=== PATIENT | male | born 1950 | race Caucasian/White ===

== ENCOUNTER 2017-09-20 01:34 | Inpatient (IN) | payer OTHER, MEDICAID ==
[~2017-09-20] VITALS: Ht 172.7 cm; Wt 76.7 kg
[2017-09-20] VITALS (18 sets, daily range): BP systolic 92–127; BP diastolic 45–80
[2017-09-20] MEDS ORDERED: ATORVASTATIN CA40 MG PO (01:55)
[2017-09-20] MEDS ORDERED: TYLENOL325 MG PO (01:55)
[2017-09-20] MEDS ORDERED: ASPIRIN325 PO (01:55)
[2017-09-20] MEDS ORDERED: PAXIL10 MG PO (01:56)
[2017-09-20] MEDS ORDERED: MIRALAX17 GM PO (01:56)
[2017-09-20] MEDS ORDERED: NORCO 5-325 TA1 EACH PO (01:57)
[2017-09-20] MEDS ORDERED: EFFEXOR XR37.5 MG PO (01:57)
[2017-09-20 01:59] LABS: HEMATOCRIT 39.1 % (42.0-52.0); HEMOGLOBIN 12.9 gm/dL (14.0-18.0); MCH 29.5 pg (26.0-34.0); MCHC 32.9 g/dL (28.0-37.0); MCV 89.8 fL (80.0-100.0); MPV 7.7 fl. (7.2-11.1); NUCLEATED RBCS 0 /100WBC; PLATELET COUNT* 182 thou/uL (150-400); RBC 4.35 mil/uL (4.50-6.00); RDW-CV 13.2 % (10.5-14.5); WBC 11.8 thou/uL (4.0-11.0)
[2017-09-20] MEDS ORDERED: APAP650 PO (02:00)
[2017-09-20 02:08] LABS: CALCIUM 8.2 mg/dL (8.5-10.1); CREATININE 1.1 mg/dL (0.6-1.3); POTASSIUM 3.2 mmol/L (3.5-5.1)
[2017-09-20 02:10] LABS: APTT 28.9 Seconds (25.0-31.3); INR 1.1; PROTIME 10.4 Seconds (9.20-11.50)
[2017-09-20 02:13] LABS: ALBUMIN 2.9 g/dL (3.4-5.0); TOTAL BILIRUBIN 0.7 mg/dL (<0.1-1.0); TOTAL PROTEIN 7.5 g/dL (6.4-8.2)
[2017-09-20 02:28] LABS: URINE BILIRUBIN NEGATIVE (Negative); URINE BLOOD 3+ (Negative); URINE CLARITY CLEAR; URINE COLOR YELLOW; URINE GLUCOSE-RANDOM NEGATIVE (Negative); URINE KETONES 2+ (Negative); URINE LEUKOCYTES-REFLEX 1+ (Negative); URINE NITRITE-REFLEX NEGATIVE (Negative); URINE PROTEIN 1+ (Negative); URINE UROBILINOGEN 0.2 E.U./dl (0.2-1.0)
[2017-09-20 02:39] LABS: SQUAMOUS 0-3 Few /LPF (0-3); URINE WBC-REFLEX >25 Many /HPF (0-5); WBC CLUMPS Moderate (None Seen)
[2017-09-20 02:40] LABS: BACTERIA-REFLEX >30 Many /HPF (None Seen); CASTS None Seen /LPF (None Seen); CRYSTALS None Seen /LPF (None Seen); MUCUS 4-6 Moderate strn/LPF (None Seen); URINE RBC >20 Many /HPF (0-2)
[2017-09-20 02:49] LABS: ABSOLUTE LYMPHOCYTES 0.6 thou/uL (0.8-5.3); ABSOLUTE MONOCYTES 0.9 thou/uL (0.0-1.2); ABSOLUTE NEUTROPHILS 10.3 thou/uL (1.6-8.1); PLATELET ESTIMATE ADEQUATE; TOXIC GRANULATION 2+
[2017-09-20 02:50] LABS: ANISOCYTOSIS Occasional
[2017-09-20 02:57] LABS: INFLUENZA A ANTIGEN None Detected (None Detect)
--- NOTE | 2017-09-20 03:21 | NUR ---
[facility] CONTACTED PER DR MINAYA REQUEST TO INQUIRE HOW [place] IS GIVING PO MEDS. PER [place] STAFF PATIENTS MEDICATIONS ARE CRUSHED AND OR MIXED WITH APPLESAUCE OR PUDDING. PATIENT WAS GIVEN TAMIFLU MIXED IN APPLESAUCE.
--- NOTE | 2017-09-20 05:03 | NUR ---
RECEIVED ERPORT FROM ED NURSE. ALL QUESTIONS ANSWERED. MEDICCATIONS, DIAGNOSIS AND PLAN OF CARE DISCUSSED. PATIENT TRANSFERRED TO UNIT AT 0430 VIA ED STRETCHER. PATIENT TRANSFERRED TO ICU BED. NURSING ADMISSION ASSESSMENT COMPLETED. MONTANEZ CATH WITH TEMP PROBE PLACED FOR ACCURATE I&O AND TEMPERATURE MEASUREMENTS. 150CC OUT OF CATH AT INSERTION TIME.
--- NOTE | 2017-09-20 06:52 | NUR ---
PATIENT RESTING IN BED AT THIS TIME. OVERALL ALERT AND ORIENTED TIMES FOUR. RIGHT SIDED WEAKNESS NOTED FROM PREVIOUS STROKE. TEMP NOTED AT 101.7 CORE. MONTANEZ CATH WITH TEMP PROBE INSERTED FOR ACCURATE I&O AND TEMPERATURES. SCD'S IN PLACE. IV PATENT TO FLUID INFUSION. FAN ON PATIENTT AND ICE BAG PLACED UNDER BASE OF NECK. NO COMPLAINTS OF PAIN OR DISCOMFORT. RN ASSESMENT COMPLETED DOCUMENTED
--- NOTE | 2017-09-20 09:03 | NUR ---
PATIENT CARE ASSUMED AT 0700. PATIENT RESTING UPON ENTERING ROOM. REFER TO ASSESSMENT AND VITALS. PATIENT DENIES PAIN AT THIS TIME, SEEMS CONFUSED TO WHY HE IS HERE. AOX4 BUT VERY FORGETFUL. APHASIC AND RIGHT SIDED WEAKNESS OF BOTH EXTREMITIES PRESENT AT BASELINE. IS FROM [facility]. TYELNOL GIVEN FOR 102 FEVER. ALL MORNING MEDICATIONS GIVEN CRUSHED IN APPLESAUCE. PATIENT SWALLOWS MULTIPLE TIMES BEFORE CLEARNING THROAT. ST EVALUATION ENTERED FOR PNEUMONIA AND HISTORY.
--- NOTE | 2017-09-20 13:44 | EKG ---
[place] [address] ELECTROCARDIOGRAM REPORT Name: JERE THIBODEAUX Room: [address] ADM IN M.R.#: [id number] Admission: 09/20/17 Attend Phys: Gee Contreras, Discharge: Date of : 50 Report #: [id number] THIS REPORT FOR: //name// [facility] ED Test Date: 2017-09-20 Test Time: 02:27:19 Pat Name: JERE THIBODEAUX Department: Room: [facility] Gender: M Business Analyst Project Manager: : 1950 Requested By: Pavan Ruby Order Number: [id number] MD: Rogers Reyes Measurements Intervals [place] Rate: 99 P: 90 AK: 133 QRS: 45 QRSD: 90 T: 35 QT: 356 QTc: 457 Interpretive Statements Sinus rhythm No previous ECG available for comparison Electronically Signed On 09-20-2017 13:43:50 [employer] CREW MEMBER by Rogers Reyes [email or web address] <ELECTRONICALLY SIGNED> By: Rogers Reyes MD, [facility] 09/20/17 1343 0227 6 Rogers Reyes MD, FACC /EPI
--- NOTE | 2017-09-20 17:32 | NUR ---
PATIENT PROGRESSING TOWARDS GOALS. NOW TRACING NSR ON APPLIQUER ZIGZAG. CURRENT CORE TEMP 99.0 WITH TWO DOSES OF PRN TYLENOL THIS SHIFT. WHILE AWAKE, PATIENT SATS 94% ON ROOM AIR, BUT WHILE SLEEPING HE DESATURATES. SNORES, PROBABLE SLEEP APNEA. SLEPT MOST OF SHIFT. AWOKEN FOR MEALS, BUT HAS NOT EATEN MUCH. REFER TO CHARTING. DAUGHTER AND SON PRESENT TODAY FOR BREIF TIME AND UPDATED ON PLAN OF CARE.
--- NOTE | 2017-09-20 23:39 | NUR ---
ASSUMED CARE OF PATIENT AT 1900 THE PATIENT REMAINS SR ON THE MONITOR O2 SAT MAINTAINED ON 2L NC CONTINUES BEDREST DURING START OF SHIFT ASSESSMENT INCONT SOFT FORMED BM INCONT EPISODE SAFETY INTERVENTIONS CONTINUE BED LOWERED WHEELS LOCKED CALL LIGHT IN REACH SIDE RAILS UP PATIENT DENIES ANY QUESTIONS OR NEEDS WILL CONTINUE TO MONITOR
[2017-09-21] VITALS (8 sets, daily range): BP systolic 100–127; BP diastolic 47–67
[2017-09-21 04:32] LABS: HEMATOCRIT 32.6 % (42.0-52.0); MCHC 33.7 g/dL (28.0-37.0); NUCLEATED RBCS 0 /100WBC; PLATELET COUNT* 160 thou/uL (150-400)
[2017-09-21 04:35] LABS: ABSOLUTE LYMPHOCYTES 0.6 thou/uL (0.8-5.3); ABSOLUTE MONOCYTES 0.3 thou/uL (0.0-1.2); ABSOLUTE NEUTROPHILS 16.2 thou/uL (1.6-8.1); LYMPHOCYTES 3.6 %; MCH 29.9 pg (26.0-34.0); MCV 88.8 fL (80.0-100.0); MPV 8.2 fl. (7.2-11.1); POLYS 94.4 %; RBC 3.68 mil/uL (4.50-6.00); RDW-CV 13.4 % (10.5-14.5); WBC 17.2 thou/uL (4.0-11.0)
[2017-09-21 05:09] LABS: CREATININE 0.9 mg/dL (0.6-1.3); MAGNESIUM 2.3 mg/dL (1.8-2.4); POTASSIUM 3.2 mmol/L (3.5-5.1)
--- NOTE | 2017-09-21 06:49 | NUR ---
THIS AM PATIENT MORE ALERT AND CONVERSATIONAL REQUESTING POP AND COMMUNICATING NEEDS WELL QUESTIONS WHEN HE WILL BE GETTING OUT OF HERE, REQUIRES ASSIST WITH DRINKING WHILE PO H20 INTAKE NOTED COUGH ET FLUID DOWN LEFT SIDE OF MOUTH IN AM NOTED KELLY IN MONTANEZ LINE SECUREMENT DEVICE REMAINS IN PLACE PATIENT TOLERATES REPOSITIONING WELL LARGE BM X 2 THIS SHIFT SAFETY INTERVENTIONS CONTINUE REPORT GIVEN TO ONCOMING RN
--- NOTE | 2017-09-21 10:30 | NUR ---
PT ADMITTED 09/20 WITH PNEUMONIA. S.T. EVAL PENDING FOR POSSIBLE ASPIRATION. PT IS FROM [facility]. NO FAMILY HERE AT THIS TIME. UNABLE TO REACH ADMISSIONS AT [facility]. WILL CONTINUE TO FOLLOW.
--- NOTE | 2017-09-21 11:49 | CON ---
[address] [address] CONSULTATION Name: JERE THIBODEAUX Room: [address] IN M.R.#: [id number] Admission: 09/20/17 Attend Phys: Gee Contreras, Discharge: Date of : 50 Report #: [id number] THIS REPORT FOR: //name// CC: Sander Contreras DATE OF SERVICE: 09/21/2017 ATTENDING PHYSICIAN: Gee Contreras MD REASON FOR EVALUATION: Influenza complicated by secondary bacterial pneumonitis. HISTORY OF PRESENT ILLNESS: Chart reviewed, the patient examined. A 67-year-old with history of previous stroke complicated by some hemiplegia, also I suspect degree of encephalopathy, he was evaluated presenting to the emergency room with progressive dyspnea, was found to be hypoxemic, temperature elevated to 103, did have positive influenza antigen B study. He was hypotensive and was transitioned to the intensive care unit. Cultures have been collected, which are unrevealing thus far. He has been started on combination therapy with azithromycin, Zosyn, and Tamiflu. He does complain of generalized abdominal related discomfort, supported on supplemental oxygen per nasal cannula. Hemodynamics have improved. ALLERGIES: No known. CURRENT MEDICATIONS: Include enoxaparin, azithromycin, methylprednisolone, paroxetine, venlafaxine, atorvastatin, aspirin, pantoprazole, Zosyn, and Tamiflu. PAST MEDICAL HISTORY: History of strokes, hemiplegia, hemiparesis, dysphagia, history of UTIs, and depression. SOCIAL HISTORY: Nonsmoker. No ethanol. FAMILY HISTORY: Noncontributory. REVIEW OF SYSTEMS: As above. PHYSICAL EXAMINATION: GENERAL: He appears somewhat chronically ill, undernourished, he is pleasant, clearly has some deficits. VITAL SIGNS: Temperature 99.1 and the T-max of 102, pulse 73, respirations 26, blood pressure 116/56. SKIN: Warm, dry, no rashes. HEENT: Otherwise, unremarkable. Nasal cannula [place] [address] CONSULTATION Name: JERE THIBODEAUX Room: [address] IN [facility].#: [id number] Admission: 09/20/17 Attend Phys: Gee Contreras, Discharge: Date of : 50 Report #: [id number] NECK: Supple. LUNGS: Scattered coarse breath sounds. HEART: Regular. I do not appreciate any murmur. ABDOMEN: Soft. There are no peritoneal signs. GENITOURINARY: Deferred. RECTAL: Deferred. LABORATORY DATA: Blood cultures sterile thus far. Urine culture unremarkable. Sodium 142, potassium 3.2, chloride 114, bicarbonate 24, BUN and creatinine 16 and 0.9, and glucose of 221. CBC: White count of 17.2, H and H 11.0 and 32.6, and platelets of 160. Chest x-ray, infiltrate in right medial lower lobe. Influenza antigen was positive. Lactic acid of 1.4. Liver functions unremarkable. Albumin of 2.9, total protein 7.5, estimated GFR of 67. ASSESSMENT: Influenza complicated by secondary bacterial pneumonitis. We will continue combination therapy including both antiviral and antibacterial. At this point, he seems to have responded fairly well in terms of hemodynamic instability, his oxygen status has stabilized, temperature has dropped, certainly we will monitor expectantly. <ELECTRONICALLY SIGNED> By: Tao Ruiz MD 09/21/17 1149 0948 [id number] Ruiz MD /nt
--- NOTE | 2017-09-21 15:07 | NUR ---
PATIENT PROGRESSING TOWARDS GOALS. VITALS WNL. TRANSFERING TO MED SURG UNIT. REPORT GIVEN TO JOHN MCCLELLAN.
--- NOTE | 2017-09-21 16:01 | NUR ---
PATIENT TRANSFERED TO BY BED WITH JOHN MCCLELLAN AND LOPEZ JUNG AT 1555.
--- NOTE | 2017-09-21 16:15 | NUR ---
ASSUMED CARE OF PATIENT. AGREE WITH PREVIOUS NURSES CHARTING.
--- NOTE | 2017-09-21 18:05 | NUR ---
ALERT AND ORIENTED X2. PATIENT HAS NOT TRANSFERRED SINCE ARRIVING TO UNIT. DENIES PAIN AND NAUSEA. IV IS PATENT AND INFUSING. TOLERATING DIET. MONTANEZ IN PLACE AND DRAINING. INCONTINENT OF BOWEL. VSS ON ROOM AIR. HOURLY ROUNDS HAVE BEEN MAINTAINED THROUGHOUT SHIFT. CALL LIGHT IS WITHIN REACH. NURSING WILL CONTINUE TO MONITOR.
[2017-09-22 03:35] VITALS: BP 138/69
--- NOTE | 2017-09-22 05:31 | NUR ---
PT SLEPT MOST OF SHIFT. ASSESSMENT DOCUMENTED. MEDS GIVEN PER E-MAR. IV PATENT, FLUIDS INFUSING. PT HAS NO REPORTS OF PAIN. MONTANEZ DRAINING. PT REPOSITIONED THROUGH NIGHT. PT A&O 1-2 THIS SHIFT. NO CONCERNS AT THIS TIME.
[2017-09-22 07:45] VITALS: BP 162/81
[2017-09-22 11:35] LABS: HEMATOCRIT 32.2 % (42.0-52.0); HEMOGLOBIN 10.8 gm/dL (14.0-18.0); MCHC 33.5 g/dL (28.0-37.0); MCV 89.4 fL (80.0-100.0); MPV 8.5 fl. (7.2-11.1); NUCLEATED RBCS 0 /100WBC; PLATELET COUNT* 175 thou/uL (150-400); RDW-CV 13.5 % (10.5-14.5); WBC 14.1 thou/uL (4.0-11.0)
[2017-09-22 11:48] LABS: ALBUMIN 2.1 g/dL (3.4-5.0); CALCIUM 7.3 mg/dL (8.5-10.1); POTASSIUM 3.1 mmol/L (3.5-5.1); TOTAL BILIRUBIN 0.4 mg/dL (<0.1-1.0)
[2017-09-22 11:57] LABS: ABSOLUTE LYMPHOCYTES 1.1 thou/uL (0.8-5.3); ABSOLUTE MONOCYTES 0.1 thou/uL (0.0-1.2); ABSOLUTE NEUTROPHILS 12.8 thou/uL (1.6-8.1); ANISOCYTOSIS 1+; PLATELET ESTIMATE ADEQUATE; POIKILOCYTOSIS 1+
[2017-09-22 16:00] VITALS: BP 159/85
--- NOTE | 2017-09-22 16:18 | NUR ---
PATIENT A&OX1 TO SELF ONLY, CONFUSED AND FORGETFUL. FLAT AFFECT, HX OF CEREBRAL INFARCT. ON ROOM AIR, IV RIGHT HAND FLUIDS INFUSSING. UP WITH MAX ASSISTX1-2, BLE WEAKNESS WITH TRANSFERS. MONTANEZ CATHETER DISCONTINUED, 10ML OUT OF BULB, D/C WELL WITH NO ISSUES. INCONTINENT OF BOWEL AND BLADDER. NO C/O PAIN/N/V. NO OTHER CONCERNS AT THIS TIME. APPROPRIATE AND COOPORATIVE WITH CARE.
[2017-09-22 20:00] VITALS: BP 151/76
[2017-09-23 00:14] VITALS: BP 135/87
[2017-09-23 00:21] VITALS: BP 158/79
[2017-09-23 03:55] LABS: ABSOLUTE LYMPHOCYTES 0.6 thou/uL (0.8-5.3); ABSOLUTE MONOCYTES 0.6 thou/uL (0.0-1.2); ABSOLUTE NEUTROPHILS 9.6 thou/uL (1.6-8.1); BASOPHILS 0.1 %; HEMATOCRIT 31.5 % (42.0-52.0); HEMOGLOBIN 10.9 gm/dL (14.0-18.0); LYMPHOCYTES 5.8 %; MCH 30.3 pg (26.0-34.0); MCHC 34.7 g/dL (28.0-37.0); MCV 87.3 fL (80.0-100.0); MONOCYTES 5.2 %; MPV 8.4 fl. (7.2-11.1); NUCLEATED RBCS 0 /100WBC; PLATELET COUNT* 180 thou/uL (150-400); POLYS 88.9 %; RDW-CV 13.1 % (10.5-14.5); WBC 10.8 thou/uL (4.0-11.0)
[2017-09-23 04:21] LABS: PREALBUMIN 14.2 mg/dL (18.0-35.7)
[2017-09-23 04:38] LABS: ALBUMIN 2.1 g/dL (3.4-5.0); CALCIUM 7.1 mg/dL (8.5-10.1); CREATININE 0.8 mg/dL (0.6-1.3); TOTAL BILIRUBIN 0.6 mg/dL (<0.1-1.0)
--- NOTE | 2017-09-23 06:05 | NUR ---
ASSUMED PATIETN CARE AT 1900. PATIENT ALERT TO SELF. THINKS HE IS STILL AT HOME WITH HIS SPOUSE. NO COMPLAINTS OF PAIN OR DISCOMFORT. IV PATENT. PATIENT DOES NOT TOLERATE PO POTASSIUM. K+ NOTED TO BE 3.0 THIS AM. HOURLY ROUNDING COMPLETED ALONG WITH WELDER ASSEMBLER, DOCUMENTED. FALL RISK PRECAUTIONS IN PLACE
[2017-09-23 07:50] VITALS: BP 157/86
[2017-09-23 13:16] VITALS: BP 157/86
[2017-09-23] MEDS ORDERED: DUONEB 2.5-0.5 M3 ML INH (13:21)
[2017-09-23] MEDS ORDERED: PREDNISONE 10 M10 M1 PO (13:23)
[2017-09-23] MEDS ORDERED: CEFUROXIME500 MG PO (15:25)
--- NOTE | 2017-09-23 15:48 | NUR ---
CM SPOKE TO THE RN IN-CHARGE OF THE PATIENT AND SHE INFORMS THAT THE DR HAS WRITTEN D/C ORDERS. UNIQUE SPOKE TO PREM AT [facility] TO INFORM OF THE PATIENTS RETURN AND FAXED THE PATIENTS D/C ORDERS. CM SPOKE TO THE PATIENT AND HIS DTR TO INFORM OF THIS AND THEY ARE IN AGREEMENT. UNIQUE SPOKE TO [facility] TO INFORM OF THE NEED FOR TRANSPORTATION BACK TO [facility] AND SETUP TRANSPORTATION FOR 1645. CM SPOKE TO THE RN IN-CHARGE OF THE PATIENT TO INFORM OF THE PATIENTS RETURN TO [facility], TIME OF TRANSPORT, AND WHERE TO CALL REPORT. CM WILL REMAIN AVIALABLE TO ASSIST AND FOLLOW NEEDED.
--- NOTE | 2017-09-23 17:05 | NUR ---
PATIENT DISCHARGED TO [facility]. REPORT CALLED. PATIENT HAD NO BELONGINGS OR CLOTHING. IV REMOVED. PATIENT ASSISTED TO WHEELCHAIR WITH MAX ASSIST OF 2. COPY OF CHART GIVEN TO TRANSPORTER. PATIENT LEFT BY WHEELCHAIR VAN.
== END 2017-09-23 17:05 | DRG 871 ==
LOC: M.ERS 01:34 → M.TBA-ER 03:09 → M.ICU 03:09 → M.3W 09-21 15:55
PROVIDERS: Emergency Medicine Emergency Medical Services; Internal Medicine; ADMIT Family Medicine
DX: A41.9 Sepsis, unspecified organism (principal); J10.08 Influenza due to other identified influenza virus with other specified pneumonia; J96.01 Acute respiratory failure with hypoxia; J15.8 Pneumonia due to other specified bacteria; N39.0 Urinary tract infection, site not specified; F32.9 Major depressive disorder, single episode, unspecified; E86.0 Dehydration; Z86.73 Personal history of transient ischemic attack (TIA), and cerebral infarction without residual deficits; Z91.81 History of falling; Z87.440 Personal history of urinary (tract) infections; Z85.841 Personal history of malignant neoplasm of brain; Z79.899 Other long term (current) drug therapy; Z79.82 Long term (current) use of aspirin

== ENCOUNTER 2019-09-23 14:16 | Inpatient (IN) | payer OTHER, MEDICAID ==
[~2019-09-23] VITALS: Ht 177.8 cm; Wt 69.0 kg
[~2019-09-23 14:16] MED LIST: APAP650 PO; ASPIRIN325 PO; ATORVASTATIN CA40 MG PO; CEFUROXIME500 MG PO; DUONEB 2.5-0.5 M3 ML INH; EFFEXOR XR37.5 MG PO; MIRALAX17 GM PO; NORCO 5-325 TA1 EACH PO; PAXIL10 MG PO; PREDNISONE 10 M10 M1 PO; TYLENOL325 MG PO
[2019-09-23 14:17] VITALS: BP 109/64
[2019-09-23] MEDS ORDERED: PROSCAR 5MG TABL5 M1 PO (14:37)
[2019-09-23] MEDS ORDERED: TAMIFLU75 MG PO (14:37)
[2019-09-23 14:43] LABS: ABSOLUTE LYMPHOCYTES 1.9 thou/uL (0.8-5.3); ABSOLUTE MONOCYTES 0.9 thou/uL (0.0-1.2); ABSOLUTE NEUTROPHILS 13.3 thou/uL (1.6-8.1); BASOPHILS 0.2 %; HEMATOCRIT 46.2 % (42.0-52.0); HEMOGLOBIN 15.6 gm/dL (14.0-18.0); MCH 30.7 pg (26.0-34.0); MCHC 33.8 g/dL (28.0-37.0); MCV 90.7 fL (80.0-100.0); MONOCYTES 5.4 %; MPV 8.5 fl. (7.2-11.1); NUCLEATED RBCS 0 /100WBC; PLATELET COUNT* 251 thou/uL (150-400); POLYS 82.4 %; RBC 5.09 mil/uL (4.50-6.00); RDW-CV 13.4 % (10.5-14.5); WBC 16.1 thou/uL (4.0-11.0)
[2019-09-23 14:49] LABS: APTT 27.1 Seconds (25.0-31.3); INR 1.1; PROTIME 10.8 Seconds (9.20-11.50)
[2019-09-23 14:53] LABS: CALCIUM 9.1 mg/dL (8.5-10.1); CREATININE 1.5 mg/dL (0.6-1.3); POTASSIUM 3.4 mmol/L (3.5-5.1)
[2019-09-23 15:02] LABS: ALBUMIN 2.8 g/dL (3.4-5.0); CK-MB MASS 0.8 ng/mL (<0.5-3.6); MAGNESIUM 2.3 mg/dL (1.8-2.4); TOTAL BILIRUBIN 1.6 mg/dL (<0.1-1.0); TOTAL PROTEIN 8.2 g/dL (6.4-8.2)
[2019-09-23 15:48] LABS: BE 0.8 mmol/L (-2 to +3); PCO2 21.8 mmHg (35.0-45.0); pH 7.586 (7.340-7.450)
[2019-09-23 15:49] LABS: PO2 52.9 mmHg (75.0-100.0)
[2019-09-23 17:27] LABS: URINE BILIRUBIN NEGATIVE (Negative); URINE BLOOD 3+ (Negative); URINE COLOR YELLOW; URINE GLUCOSE-RANDOM NEGATIVE (Negative); URINE KETONES 1+ (Negative); URINE NITRITE-REFLEX NEGATIVE (Negative); URINE PROTEIN 1+ (Negative); URINE UROBILINOGEN 0.2 E.U./dl (0.2-1.0)
[2019-09-23 17:30] LABS: URINE CLARITY HAZY; URINE LEUKOCYTES-REFLEX 2+ (Negative)
--- NOTE | 2019-09-23 17:43 | EKG ---
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1950 Requested By: Gustabo King Order Number: [id number] MD: Rogers Reyes Measurements Intervals [place] Rate: 208 P: OR: QRS: 65 QRSD: 81 T: -81 QT: 230 QTc: 429 Interpretive Statements Supraventricular tachycardia Repolarization abnormality, prob rate related Compared to ECG 09/20/2017 02:27:19 Early repolarization now present Sinus rhythm no longer present Electronically Signed On 09-23-2019 17:42:56 ARMHOLE BASTER JUMPBASTING by Rogers Reyes [email or web address] <ELECTRONICALLY SIGNED> By: Rogers Reyes MD, FACC 09/23/19 1742 1421 1421 Rogers Reyes MD, [facility] /EPI
[2019-09-23 17:44] LABS: AMORPHOUS URATES Few /LPF (None Seen); CASTS None Seen /LPF (None Seen); SQUAMOUS 0-3 Few /LPF (0-3); URINE RBC 3-10 Few /HPF (0-2); URINE WBC-REFLEX >25 Many /HPF (0-5)
[2019-09-23 19:45] VITALS: BP 121/68
[2019-09-23 21:00] VITALS: BP 127/65
[2019-09-23 21:43] LABS: CALCIUM 8.5 mg/dL (8.5-10.1); CREATININE 1.3 mg/dL (0.6-1.3); POTASSIUM 3.7 mmol/L (3.5-5.1)
[2019-09-23 22:00] VITALS: BP 130/66
[2019-09-23 22:28] LABS: INFLUENZA A ANTIGEN Negative (Negative); INFLUENZA B ANTIGEN Negative (Negative)
[2019-09-23 23:00] VITALS: BP 124/64
[2019-09-24] VITALS (13 sets, daily range): BP systolic 106–136; BP diastolic 48–66
[2019-09-24 02:23] LABS: ABSOLUTE LYMPHOCYTES 0.9 thou/uL (0.8-5.3); ABSOLUTE MONOCYTES 0.6 thou/uL (0.0-1.2); ABSOLUTE NEUTROPHILS 13.2 thou/uL (1.6-8.1); HEMATOCRIT 41.2 % (42.0-52.0); HEMOGLOBIN 13.9 gm/dL (14.0-18.0); LYMPHOCYTES 5.8 %; MCH 30.7 pg (26.0-34.0); MCHC 33.8 g/dL (28.0-37.0); MCV 90.9 fL (80.0-100.0); MONOCYTES 3.8 %; MPV 8.8 fl. (7.2-11.1); NUCLEATED RBCS 0 /100WBC; PLATELET COUNT* 193 thou/uL (150-400); POLYS 90.4 %; RBC 4.53 mil/uL (4.50-6.00); RDW-CV 13.2 % (10.5-14.5); WBC 14.6 thou/uL (4.0-11.0)
[2019-09-24 02:24] LABS: ANTI-Xa-UNFRACTIONATED HEP 7.391; BE -2.5 mmol/L (-2 to +3); PCO2 VENOUS 40.9 mmHg (41.0-51.0); PO2 VENOUS 40.2 mmHg (35.0-45.0)
[2019-09-24 02:37] LABS: CALCIUM 7.8 mg/dL (8.5-10.1); CREATININE 1.3 mg/dL (0.6-1.3); PHOSPHORUS* 1.8 mg/dL (2.5-4.9); POTASSIUM 3.4 mmol/L (3.5-5.1)
[2019-09-24 06:16] LABS: CALCIUM 7.1 mg/dL (8.5-10.1); CREATININE 1.2 mg/dL (0.6-1.3); POTASSIUM 3.4 mmol/L (3.5-5.1)
--- NOTE | 2019-09-24 10:22 | EKG ---
[place] [address] ELECTROCARDIOGRAM REPORT Name: JERE THIBODEAUX Room: [address] ADM IN M.R.#: [id number] Admission: 09/23/19 Attend Phys: Naseem Beckwith, Discharge: Date of : 50 Date of Service: 09/23/191931 Report #: [id number] THIS REPORT FOR: //name// [facility] ED Test Date: 2019-09-23 Test Time: 19:32:55 Pat Name: JERE THIBODEAUX Department: Room: [address] Gender: M Access Clerk: : 1950 Requested By: Archana Thomas Order Number: [id number] MD: Adriano Taylor Measurements Intervals [place] Rate: 79 P: 54 AR: 115 QRS: 45 QRSD: 85 T: 6 QT: 367 QTc: 421 Interpretive Statements Sinus rhythm Borderline short AR interval Abnormal T, consider ischemia, anterior leads Baseline wander in lead(s) V1 Compared to ECG 09/23/2019 14:21:33 T-wave abnormality now present Possible ischemia now present Atrial fibrillation no longer present Early repolarization no longer present Electronically Signed On 09-24-2019 10:21:21 DATA WAREHOUSE DEVELOPER by Adriano Taylor [email or web address] <ELECTRONICALLY SIGNED> By: Adriano Taylor MD, [facility] 09/24/19 1021 31 31 Adriano Taylor MD, [facility] /EPI
[2019-09-25] VITALS: BP 106/48
[2019-09-25 01:15] VITALS: BP 126/59
[2019-09-25 04:50] LABS: ABSOLUTE LYMPHOCYTES 0.8 thou/uL (0.8-5.3); ABSOLUTE MONOCYTES 0.6 thou/uL (0.0-1.2); ABSOLUTE NEUTROPHILS 15.4 thou/uL (1.6-8.1); BASOPHILS 0.1 %; HEMATOCRIT 34.2 % (42.0-52.0); LYMPHOCYTES 4.6 %; MCH 30.3 pg (26.0-34.0); MCHC 34.1 g/dL (28.0-37.0); MONOCYTES 3.4 %; NUCLEATED RBCS 0 /100WBC; PLATELET COUNT* 214 thou/uL (150-400); POLYS 91.9 %; RBC 3.84 mil/uL (4.50-6.00); RDW-CV 13.2 % (10.5-14.5); WBC 16.8 thou/uL (4.0-11.0)
[2019-09-25 05:02] LABS: HEMOGLOBIN 11.7 gm/dL (14.0-18.0)
[2019-09-25 05:27] LABS: ALBUMIN 1.9 g/dL (3.4-5.0); TOTAL BILIRUBIN 0.9 mg/dL (<0.1-1.0); TOTAL PROTEIN 6.1 g/dL (6.4-8.2)
[2019-09-25 05:29] LABS: POTASSIUM 2.9 mmol/L (3.5-5.1)
[2019-09-25 09:15] VITALS: BP 128/63
[2019-09-25 12:00] VITALS: BP 126/54
[2019-09-25 15:58] VITALS: BP 122/53
[2019-09-25 20:00] VITALS: BP 121/65
[2019-09-26 00:41] VITALS: BP 168/66
[2019-09-26 03:59] LABS: HEMATOCRIT 29.4 % (42.0-52.0); HEMOGLOBIN 10.2 gm/dL (14.0-18.0); MCH 30.6 pg (26.0-34.0); MCHC 34.6 g/dL (28.0-37.0); MCV 88.6 fL (80.0-100.0); MPV 8.5 fl. (7.2-11.1); NUCLEATED RBCS 0 /100WBC; PLATELET COUNT* 208 thou/uL (150-400); RBC 3.32 mil/uL (4.50-6.00); RDW-CV 13.3 % (10.5-14.5); WBC 11.2 thou/uL (4.0-11.0)
[2019-09-26 04:00] VITALS: BP 134/62
[2019-09-26 04:03] LABS: CALCIUM 6.8 mg/dL (8.5-10.1); CREATININE 0.9 mg/dL (0.6-1.3); POTASSIUM 3.4 mmol/L (3.5-5.1)
[2019-09-26 07:04] LABS: ABSOLUTE LYMPHOCYTES 1.3 thou/uL (0.8-5.3); ABSOLUTE MONOCYTES 0.3 thou/uL (0.0-1.2); ABSOLUTE NEUTROPHILS 9.5 thou/uL (1.6-8.1); ATYPICAL LYMPHS 1 %; BURR CELLS 1+; METAMYELOCYTES 1 %; MYELOCYTES 1 %
[2019-09-26 07:05] LABS: PLATELET ESTIMATE ADEQUATE
[2019-09-26 07:06] LABS: TOXIC GRANULATION 1+
[2019-09-26 08:00] VITALS: BP 121/40
[2019-09-26 11:19] VITALS: BP 114/50
[2019-09-26 16:38] VITALS: BP 121/55
--- NOTE | 2019-09-26 16:41 | 2DMMODE ---
[place] [address] 2 D/M-MODE ECHOCARDIOGRAM Name: THIBODEAUXJEREROMA FUENTES Room: [address] IN .[place].#: [id number] Admission: 09/23/19 Attend Phys: Naseem Beckwith, Discharge: Date of : 50 Date of Service: 09/26/19 [facility] Report #: [id number] THIS REPORT FOR: cc: Andrei Darnell MD, Dennis R MD Blick,Yann Chahal MD [facility] ~ APPROVED REPORT Study performed: 09/26/2019 15:30:32 EXAM: Comprehensive 2D, Doppler, and color-flow Echocardiogram Patient Location: In-Patient Room #: [facility] Status: routine BSA: 1.90 HR: 58 bpm BP: 121/40 mmHg Rhythm: NSR Other Information Study Quality: Good Indications Atrial Fibrillation Dyspnea 2D Dimensions IVSd: 8.71 (7-11mm) LVOT Diam: 19.25 (18-24mm) LVDd: 46.26 mm PWd: 10.21 (7-11mm) Ascending Ao: 30.42 (22-36mm) LVDs: 28.68 (25-40mm) Aortic Root: 33.63 mm Volumes Left Atrial Volume (Systole) LA ESV Index: 20.40 mL/m2 Aortic Valve AoV Peak Ian.: 1.09 m/s AO Peak Gr.: 4.72 mmHg LVOT Max P.28 mmHg AO Mean Gr.: 2.44 mmHg LVOT Mean P.05 mmHg LVOT Max V: 1.15 m/s AO V2 VTI: 21.07 cm LVOT Mean V: 0.64 m/s REJI (VTI): 3.01 cm2 LVOT V1 VTI: 21.78 [place] [address] 2 D/M-MODE ECHOCARDIOGRAM Name: JERE THIBODEAUX Room: [address] IN ..#: [id number] Admission: 09/23/19 Attend Phys: Naseem Beckwith, Discharge: Date of : 50 Date of Service: 09/26/19 [facility] Report #: [id number] Mitral Valve E/A Ratio: 1.53 MV Decel. Time: 186.47 ms MV E Max Ian.: 0.89 m/s MV PHT: 54.08 ms MVA (PHT): 4.07 cm2 TDI E/Lateral E': 9.89 E/Medial E': 8.09 Medial E' Ian.: 0.11 m/s Lateral E' Ian.: 0.09 m/s Pulmonary Valve PV Peak Ian.: 0.79 m/s PV Peak Gr.: 2.51 mmHg Tricuspid Valve RAP Estimate: 5.00 mmHg TR Peak Gr.: 25.19 mmHg RVSP: 30.00 mmHg PA Pressure: 30.00 mmHg Left Ventricle The left ventricle is normal size. There is normal LV segmental wall motion. There is normal left ventricular wall thickness. Left ventricular systolic function is normal. The left ventricular ejection fraction is within the normal range. LVEF is 55-60%. Grade IV - fixed restrictive diastolic dysfunction. Right Ventricle The right ventricle is normal size. The right ventricular systolic function is normal. Atria The left atrium size is normal. The right atrium size is normal. Aortic Valve The aortic valve is normal in structure. No aortic regurgitation is present. There is no aortic valvular stenosis. Mitral Valve The mitral valve is normal in structure. Mild mitral regurgitation. No evidence of mitral valve stenosis. Tricuspid Valve The tricuspid valve is normal in structure[place] [address] 2 D/M-MODE ECHOCARDIOGRAM Name: DEYVI THIBODEAUXROMA FUENTES Room: [address]#: [id number] Admission: 09/23/19 Attend Phys: Naseem Beckwith, Discharge: Date of : 50 Date of Service: 09/26/19 1640 Report #: [id number] regurgitation. estimated pa pressure 35 mm Hg Pulmonic Valve The pulmonary valve is normal in structure. There is no pulmonic valvular regurgitation. Great Vessels The aortic root is normal in size. IVC is normal in size and collapses >50% with inspiration. Pericardium There is no pericardial effusion. <Conclusion> LVEF is 55-60%. Mild mitral regurgitation. <ELECTRONICALLY SIGNED> By: Yann Olmos MD, FACC 09/26/19 1640 1640 1640 Yann Olmos MD, FACC /INF
[2019-09-26 19:25] VITALS: BP 109/54
[2019-09-27] VITALS: BP 111/51
[2019-09-27 02:07] LABS: GLYCOHEMOGLOBIN (HGB A1C) 6.2 % (4.8-5.6)
[2019-09-27 05:00] VITALS: BP 125/62
[2019-09-27 05:18] LABS: HEMOGLOBIN 11.1 gm/dL (14.0-18.0); MCH 31.3 pg (26.0-34.0); MCHC 35.8 g/dL (28.0-37.0); MCV 87.5 fL (80.0-100.0); MPV 8.3 fl. (7.2-11.1); RBC 3.54 mil/uL (4.50-6.00); RDW-CV 13.2 % (10.5-14.5); WBC 9.5 thou/uL (4.0-11.0)
[2019-09-27 05:31] LABS: CALCIUM 7.1 mg/dL (8.5-10.1); CREATININE 0.9 mg/dL (0.6-1.3); POTASSIUM 3.1 mmol/L (3.5-5.1)
[2019-09-27 08:00] VITALS: BP 142/62
[2019-09-27 11:54] VITALS: BP 104/43
[2019-09-27 16:23] VITALS: BP 126/56
[2019-09-27 22:41] VITALS: BP 122/67
[2019-09-28 00:42] VITALS: BP 151/72
[2019-09-28 04:00] VITALS: BP 138/60
[2019-09-28 08:00] VITALS: BP 105/78
[2019-09-28 11:50] LABS: CALCIUM 7.2 mg/dL (8.5-10.1); MAGNESIUM 1.8 mg/dL (1.8-2.4); PHOSPHORUS* 2.8 mg/dL (2.5-4.9); POTASSIUM 3.7 mmol/L (3.5-5.1)
[2019-09-28 12:10] VITALS: BP 121/55
[2019-09-28 18:06] VITALS: BP 116/57
[2019-09-28 23:06] VITALS: BP 130/69
[2019-09-29] VITALS: BP 109/57
[2019-09-29 04:00] VITALS: BP 121/49
[2019-09-29 05:03] LABS: HEMATOCRIT 36.9 % (42.0-52.0); HEMOGLOBIN 12.6 gm/dL (14.0-18.0); MCH 30.6 pg (26.0-34.0); MCHC 34.3 g/dL (28.0-37.0); MCV 89.3 fL (80.0-100.0); MPV 8.5 fl. (7.2-11.1); RBC 4.13 mil/uL (4.50-6.00); WBC 9.1 thou/uL (4.0-11.0)
[2019-09-29 05:30] LABS: CALCIUM 7.9 mg/dL (8.5-10.1); CREATININE 0.9 mg/dL (0.6-1.3); MAGNESIUM 1.9 mg/dL (1.8-2.4); PHOSPHORUS* 2.4 mg/dL (2.5-4.9); POTASSIUM 3.7 mmol/L (3.5-5.1)
[2019-09-29 07:39] LABS: ADENOVIRUS Negative (Negative); INFLUENZA B Negative (Negative); METAPNEUMOVIRUS Negative (Negative); PARAINFLUENZA 1 Negative (Negative); PARAINFLUENZA 2 Negative (Negative); PARAINFLUENZA 3 Negative (Negative); RHINOVIRUS Negative (Negative); RSV A Negative (Negative); RSV B Negative (Negative)
[2019-09-29 08:57] VITALS: BP 114/50
[2019-09-29 12:18] VITALS: BP 104/59
[2019-09-29 16:00] VITALS: BP 117/64
[2019-09-29 20:00] VITALS: BP 132/72
[2019-09-30] VITALS (7 sets, daily range): BP systolic 104–138; BP diastolic 47–71
[2019-09-30 05:07] LABS: HEMATOCRIT 37.8 % (42.0-52.0); MCH 30.8 pg (26.0-34.0); MCHC 34.4 g/dL (28.0-37.0); MCV 89.5 fL (80.0-100.0); MPV 8.6 fl. (7.2-11.1); RBC 4.22 mil/uL (4.50-6.00); RDW-CV 13.6 % (10.5-14.5); WBC 8.6 thou/uL (4.0-11.0)
--- NOTE | 2019-09-30 13:40 | CON ---
[address] [address] CONSULTATION Name: JERE THIBODEAUX Room: [address] ADM IN M.R.#: [id number] Admission: 09/23/19 Attend Phys: Naseem Beckwith MD Discharge: Date of : 50 Report #: [id number] THIS REPORT FOR: //name// cc: Andrei Darnell MD, Dennis R MD ~ THIS REPORT FOR: //name// CC: Naseem Darnell DATE OF SERVICE: 09/24/2019 HISTORY OF PRESENT ILLNESS: The patient is a 69-year-old male, brought in yesterday because of poor responsiveness in the senior living. He was noted to be in atrial fibrillation with a tachycardic response. He initially received Cardizem and subsequently amiodarone. In the context of amiodarone, he reverted to a sinus mechanism. Chest radiograph reveals bibasilar infiltrates and a question of aspiration is raised. The patient has been on complex medicines including venlafaxine, paroxetine or Paxil, hydrocodone, DuoNeb, prednisone, and antibiotics. There is a prior history of hemiplegia, hemiparesis, and a benign brain neoplasm. PHYSICAL EXAMINATION: GENERAL: Reveals an unresponsive elderly male. VITAL SIGNS: Blood pressure 130/70, pulse rate 74 and regular, and respirations are unlabored. CHEST: Reveals basilar crackles. CARDIAC: Reveals a regular rhythm. ABDOMEN: Soft. EXTREMITIES: Well perfused. Rhythm strips were reviewed and they demonstrated atrial fibrillation at varying rates, initially very rapid at a rate of 190 and subsequent strips demonstrated atrial fibrillation with a moderate response and today he is in sinus rhythm and a normal rate on IV amiodarone 1 mg per minute. IMPRESSION: 1. Atrial fibrillation with initially tachycardic and now moderate ventricular responses; he reverted to sinus mechanism on amiodarone. 2. Probable aspiration pneumonia. 3. [place] [address] CONSULTATION Name: JERE THIBODEAUX GINA Room: [address] IN [facility].#: [id number] Admission: 09/23/19 Attend Phys: Naseem Beckwith MD Discharge: Date of : 50 Report #: [id number] 4. History of cerebrovascular accident with right-sided weakness. RECOMMENDATIONS: Continue amiodarone, at this point decreasing it to 0.5 mg per minute. I would change to oral, Dobhoff for administration once that route is available to us. At this point, given its efficacy, I would continue the amiodarone at a reduced dosage. Thank you for allowing us to see the patient in cardiovascular assessment. <ELECTRONICALLY SIGNED> By: Adriano Taylor MD, [facility] 09/30/19 1340 0913 1047John Marlene Taylor MD, FACC /nt
[2019-10-01 03:34] VITALS: BP 118/59
[2019-10-01 04:16] VITALS: BP 180/83
[2019-10-01 08:00] VITALS: BP 125/63
[2019-10-01] MEDS ORDERED: AUGMENTIN 875-1 EACH PO (08:57)
[2019-10-01] MEDS ORDERED: VITAMIN D21250 MC1 PO (08:57)
[2019-10-01 10:00] VITALS: BP 125/63
[2019-10-01] MEDS ORDERED: KEPPRA XR500 MG PO (10:03)
[2019-10-01] MEDS ORDERED: ASPIR 8181 MG PO (10:15)
[2019-10-01] MEDS ORDERED: ELIQUIS5 MG PO (10:15)
[2019-10-01] MEDS ORDERED: PYRIDOXINE HCL50 MG PO (10:15)
[2019-10-01] MEDS ORDERED: LOPRESSOR25 PO (10:17)
[2019-10-01] MEDS ORDERED: PROTONIX40 M1 PO (10:17)
[2019-10-01 12:30] VITALS: BP 126/78
[2019-10-03 17:08] LABS: INFLUENZA A Positive (Negative)
== END 2019-10-01 13:55 | DRG 177 ==
LOC: M.ERS 14:16 → M.TBA-ER 16:02 → M.2W 16:02 → M.ICU 19:37 → M.2W 09-25 01:17
PROVIDERS: Family Medicine; Internal Medicine Cardiovascular Disease; Internal Medicine Pulmonary Disease; ADMIT Internal Medicine
DX: J69.0 Pneumonitis due to inhalation of food and vomit (principal); J96.01 Acute respiratory failure with hypoxia; G93.41 Metabolic encephalopathy; E43 Unspecified severe protein-calorie malnutrition; N17.0 Acute kidney failure with tubular necrosis; I47.1 Supraventricular tachycardia; E87.2 Acidosis; E87.3 Alkalosis; E87.0 Hyperosmolality and hypernatremia; I69.351 Hemiplegia and hemiparesis following cerebral infarction affecting right dominant side; E87.8 Other disorders of electrolyte and fluid balance, not elsewhere classified; R40.0 Somnolence; I48.91 Unspecified atrial fibrillation; E87.6 Hypokalemia; T68.XXXA Hypothermia, initial encounter; Z99.3 Dependence on wheelchair; Z68.21 Body mass index [BMI] 21.0-21.9, adult; Z79.899 Other long term (current) drug therapy